=== PATIENT | female | born 1965 | race Two or more races ===

== ENCOUNTER 2022-03-02 21:14 | Emergency (ER) | payer OTHER, MEDICAID ==
[~2022-03-02] VITALS: Ht 157.5 cm; Wt 68.5 kg
[2022-03-02] MEDS ORDERED: LIDOCAINE 5% PATCH TOP STA (23:26)
[2022-03-02 23:30] VITALS: BP 153/104
[2022-03-02] MEDS ORDERED: IBUPROFEN 400MG TABLET PO ONE (23:30)
[2022-03-02] MEDS ORDERED: ACETAMINOPHEN 325MG TABLET PO ONE (23:30)
[2022-03-03] MEDS ORDERED: LIDO1ADH23 TP (01:50)
[2022-03-03] MEDS ORDERED: NAPR-1176 MT (01:50)
[2022-03-03] MEDS ORDERED: CYCL10TA7 MT (01:50)
== END 2022-03-03 02:13 | disposition home or self-care (01) ==
LOC: ER 21:14
DX: S39.82XA Other specified injuries of lower back, initial encounter (principal); S29.8XXA Other specified injuries of thorax, initial encounter; R03.0 Elevated blood-pressure reading, without diagnosis of hypertension; M43.17 Spondylolisthesis, lumbosacral region; V43.52XA Car driver injured in collision with other type car in traffic accident, initial encounter; Y93.89 Activity, other specified; Y92.488 Other paved roadways as the place of occurrence of the external cause
CPT/HCPCS: 72070; 72110; 99284